=== PATIENT | female | born 1985 | race Caucasian/White ===

== ENCOUNTER 2018-03-01 16:26 | Emergency (ER) | payer OTHER, MEDICARE ==
[~2018-03-01] VITALS: Ht 170.2 cm; Wt 49.9 kg
[~2018-03-01 16:26] MED LIST: AMOXIL500 MG PO; BACTRIM DS 8001 TAB PO; FLEXERIL10 MG PO; IBU800 MG PO; KAPVAY0.1 M1 PO; KLONOPIN1 M1 PO; LOTRIMIN CR1 %/30 GM TOP; NORCO 325 MG-51 TAB PO; SEROQUEL XR50 M1 PO; ZOLOFT50 M1
[2018-03-01 16:31] VITALS: BP 143/87
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
[2018-03-01] MEDS ORDERED: REMERON45 M1 PO (19:32)
[2018-03-01] MEDS ORDERED: ZOLOFT50 M1 PO (19:32)
[2018-03-01] MEDS ORDERED: NEURONTIN400 M1 PO (19:32)
[2018-03-01] MEDS ORDERED: SEROQUEL300 M1 PO (19:32)
[2018-03-01] MEDS ORDERED: CYCLOBENZAPRINE5 M2 PO (19:32)
[2018-03-01] MEDS ORDERED: CLONAZEPAM1 M2 PO (19:32)
[2018-03-01] MEDS ORDERED: CLONIDINE HCL0.1 MG PO (19:32)
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
[2018-03-01] MEDS ORDERED: CYCLOBENZAPRINE10 M1 PO (19:53)
== END 2018-03-01 19:53 ==
LOC: ERH 16:26
DX: S40.011A Contusion of right shoulder, initial encounter (principal); S40.012A Contusion of left shoulder, initial encounter; S80.01XA Contusion of right knee, initial encounter; S80.02XA Contusion of left knee, initial encounter; Y04.8XXA Assault by other bodily force, initial encounter; Y92.89 Other specified places as the place of occurrence of the external cause; Y93.89 Activity, other specified
CPT/HCPCS: 71046; 72040; 73030-LT

== ENCOUNTER 2018-03-11 13:30 | Emergency (ER) | payer OTHER, MEDICARE ==
[~2018-03-11] VITALS: Ht 170.2 cm; Wt 49.0 kg
[~2018-03-11 13:30] MED LIST changes: +CLONAZEPAM1 M2 PO; +CLONIDINE HCL0.1 MG PO; +CYCLOBENZAPRINE10 M1 PO; +CYCLOBENZAPRINE5 M2 PO; +NEURONTIN400 M1 PO; +REMERON45 M1 PO; +SEROQUEL300 M1 PO; +ZOLOFT50 M1 PO
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
--- NOTE | 2018-03-11 16:36 | RADIOLOGY REPORT ---
EXAMINATION: XR CHEST CLINICAL INFORMATION: Atelectasis COMPARISON: February 2018 TECHNIQUE: 2 views of the chest were obtained. FINDINGS: Newly developed infiltrate/atelectasis at middle lobe. Left lung remain clear. Heart mediastinum and coleen are normal. IMPRESSION: Newly developed consolidation atelectasis presumably pneumonia. Follow-up recommended to ensure complete clearance.
[2018-03-11] MEDS ORDERED: CLONAZEPAM1 M2 PO (16:51)
[2018-03-11] MEDS ORDERED: CHERATUSSIN AC118 M1 PO (16:51)
[2018-03-11] MEDS ORDERED: TESSALON PERLE100 M1 PO (16:51)
[2018-03-11] MEDS ORDERED: CYCLOBENZAPRINE10 M1 PO (16:51)
[2018-03-11] MEDS ORDERED: ZITHROMAX250 M2 PO (16:51)
[2018-03-11] MEDS ORDERED: PROAIR HFA8.5 GM INH (16:52)
[2018-03-11] MEDS ORDERED: IBUPROFEN600 M1 PO (16:52)
[2018-03-11 17:48] VITALS: BP 124/79
== END 2018-03-11 17:49 ==
LOC: ERH 13:30
DX: J18.9 Pneumonia, unspecified organism (principal); F17.210 Nicotine dependence, cigarettes, uncomplicated
CPT/HCPCS: 71046; 81025